=== PATIENT | male | born 2000 | race Caucasian/White ===

== ENCOUNTER → 2018-01-11 | Outpatient (CLI) | payer OTHER ==
[~2018-01-11] MED LIST: IBUPROFEN600 MG PO
== END | disposition home or self-care (01) ==
LOC: RESCLI 02:48
DX: L05.91 Pilonidal cyst without abscess (principal); R03.0 Elevated blood-pressure reading, without diagnosis of hypertension; R00.0 Tachycardia, unspecified; M79.1 Myalgia

== ENCOUNTER → 2018-03-08 | Day surgery (SDC) | payer OTHER ==
[~2018-03-08] VITALS: Ht 185.4 cm; Wt 81.6 kg
[~2018-03-08] MED LIST changes: +IBU800 M1 PO; +NORCO 5-325 TA1 EACH PO; +SEPTDS PO
[2018-03-08 07:12] VITALS: BP 138/75
[2018-03-08 09:48] VITALS: BP 125/70
[2018-03-08 10:03] VITALS: BP 120/59
[2018-03-08 10:18] VITALS: BP 119/63
[2018-03-08 10:33] VITALS: BP 118/65
[2018-03-08 10:48] VITALS: BP 115/66
== END | disposition home or self-care (01) ==
LOC: SDC 03-03 11:00
DX: L05.91 Pilonidal cyst without abscess (principal)

== ENCOUNTER → 2020-03-26 | Outpatient (CLI) | payer OTHER | END | disposition home or self-care (01) | LOC: COVID19 02:53 | DX: Z03.818 Encounter for observation for suspected exposure to other biological agents ruled out (principal) ==